=== PATIENT | female | born 1990 | race Caucasian/White ===

== ENCOUNTER 2023-01-05 14:54 | Inpatient (IN) | payer MEDICAID ==
[~2023-01-05] VITALS: Ht 154.9 cm; Wt 78.7 kg
[2023-01-05 16:03] LABS: BASOPHILS % (AUTO) 0.5 % (0.0-2.0); EOSINOPHILS % (AUTO) 0.5 % (1.0-6.0); HEMATOCRIT 37.7 % (36-46); MEAN CORPUSCULAR HGB CONC 31.8 G/dL (31.0-37.0); MEAN CORPUSCULAR VOLUME 79 fL (80-100); MONOCYTES # (AUTO) 0.5 K/uL (0.1-1.0); MONOCYTES % (AUTO) 5.4 % (2.0-9.0); NEUTROPHILS # (AUTO) 6.9 K/uL (1.8-7.7); NEUTROPHILS % (AUTO) 72.6 % (40.0-70.0); PLATELET COUNT (AUTO) 328 K/uL (150-450); RED CELL DISTRIBUTION WIDTH 17.5 % (11.5-14.5)
[2023-01-05 16:12] LABS: ANION GAP 8 mmol/L (8-16); CARBON DIOXIDE 28 mmol/L (22-29); CHLORIDE 103 mmol/L (98-107); GLOMERULAR FILTR. RATE CALC > 60 mL/min (>60); GLUCOSE,RANDOM 95 mg/dL (70-110); POTASSIUM 3.6 mmol/L (3.5-5.1); SODIUM SERUM 139 mmol/L (136-145); UREA NITROGEN, BLOOD 13 mg/dL (7-18)
[2023-01-05 16:23] LABS: ALANINE AMINOTRANSFERASE 19 U/L (12-78); ALKALINE PHOSPHATASE 64 U/L (46-116); ASPARTATE AMINOTRANSFERASE 16 U/L (15-37); BILIRUBIN,TOTAL 0.3 mg/dL (0.1-1.0); HCG,QUANTITATIVE < 1 mIU/mL (0-6); TOTAL PROTEIN, SERUM 7.9 g/dL (6.4-8.2)
[2023-01-05] MEDS ORDERED: LAMO100 PO (16:46)
[2023-01-05] MEDS ORDERED: LORazepam 2 MG TABLET PO PRN (17:00)
[2023-01-05] MEDS ORDERED: HALOPERIDOL 5 MG TABLET PO PRN (17:00)
[2023-01-05] MEDS ORDERED: ZOLPIDEM TARTRATE 10 MG TABLET PO PRN (17:00)
[2023-01-05 18:29] LABS: COVID AG,FIA SOURCE NASOPHARYNGEAL
[2023-01-05 18:34] LABS: APPEARANCE,URINE HAZY (CLEAR); BILIRUBIN,URINE NEGATIVE (NEGATIVE); GLUCOSE, URINE (UA) NEGATIVE (NEGATIVE); KETONES,URINE NEGATIVE (NEGATIVE); LEUKOCYTE ESTERASE ,URINE NEGATIVE (NEGATIVE); NITRATE,URINE NEGATIVE (NEGATIVE); OCCULT BLOOD,URINE NEGATIVE (NEGATIVE); PROTEIN,URINE TRACE mg/dL (NEGATIVE); SPECIFIC GRAVITIY, URINE 1.021 (1.003-1.030); UROBILINOGEN,URINE <=1.0 mg/dL (<=1.0)
[2023-01-05] MEDS ORDERED: TRAZ-257 PO (18:34)
[2023-01-05] MEDS ORDERED: HYDR-4527 PO (18:34)
[2023-01-05] MEDS ORDERED: FLUO20CA36 PO (18:34)
[2023-01-05] MEDS ORDERED: NALT50TA6 PO (18:34)
[2023-01-05 18:41] LABS: AMPHET/METH SCREEN,URINE NEGATIVE (NEGATIVE); BARBITURATE SCREEN, URINE NEGATIVE (NEGATIVE); BENZODIAZEPINES SCREEN,URINE NEGATIVE (NEGATIVE); CANNABINOID SCREEN,URINE NEGATIVE (NEGATIVE); COCAINE SCREEN,URINE NEGATIVE (NEGATIVE); METHADONE SCREEN, URINE NEGATIVE (NEGATIVE); OPIATE SCREEN,URINE NEGATIVE (NEGATIVE); PHENCYCLIDINE SCREEN,URINE NEGATIVE (NEGATIVE)
[2023-01-05 22:34] VITALS: BP 111/67
[2023-01-06] MEDS ORDERED: LamoTRIgine 100 MG TABLET PO SCH (09:00)
[2023-01-06 09:02] VITALS: BP 104/55
[2023-01-06] MEDS: FLUoxetine HCL 20 MG CAPSULE PO SCH (09:03)
[2023-01-06 16:00] VITALS: BP 130/77
[2023-01-06] MEDS: LamoTRIgine 100 MG TABLET PO SCH (16:16)
[2023-01-06] MEDS: TraZODone HCL 100 MG TABLET PO SCH (21:35)
[2023-01-06] MEDS ORDERED: ACETAMINOPHEN 325 MG TABLET PO PRN (21:45)
[2023-01-06] MEDS ORDERED: MAGNESIUM HYDROXIDE SUSPENSION 30 ML UDCUP PO PRN (21:45)
[2023-01-06] MEDS ORDERED: ALBUTEROL SULFATE HFA 90 MCG/PUFF 8 GM INHALER IH PRN (21:45)
[2023-01-06] MEDS ORDERED: IBUPROFEN 600 MG TABLET PO PRN (21:45)
[2023-01-06] MEDS ORDERED: CloNIDine HCL 0.1 MG TABLET PO PRN (21:45)
[2023-01-06] MEDS ORDERED: BENZOCAINE/MENTHOL LOZENGE PO PRN (21:45)
[2023-01-06] MEDS ORDERED: ONDANSETRON HCL 4 MG TABLET PO PRN (21:45)
[2023-01-06] MEDS ORDERED: LOPERAMIDE HCL 2 MG CAPSULE PO PRN (21:45)
[2023-01-06] MEDS ORDERED: BACITRACIN 28 GM OINTMENT TP PRN (21:45)
[2023-01-06] MEDS ORDERED: MAG HYDROX/AL HYDROX/SIMETH ES 30 ML SUSPENSION UDCUP PO PRN (21:45)
[2023-01-06] MEDS ORDERED: OMEPRAZOLE 20 MG CAPSULE PO PRN (21:45)
[2023-01-06] MEDS ORDERED: PETROLATUM,WHITE 28 GM JELLY TP PRN (21:45)
[2023-01-06] MEDS ORDERED: DOCUSATE SODIUM 100 MG CAPSULE PO PRN (21:45)
[2023-01-07] MEDS: LamoTRIgine 100 MG TABLET PO SCH ×2 (08:32→15:53)
[2023-01-07] MEDS: FLUoxetine HCL 20 MG CAPSULE PO SCH (08:33)
[2023-01-07 08:40] VITALS: BP 95/54
[2023-01-07 16:12] VITALS: BP 120/79
[2023-01-07] MEDS: TraZODone HCL 100 MG TABLET PO SCH (20:39)
[2023-01-08] MEDS: FLUoxetine HCL 20 MG CAPSULE PO SCH (08:44)
[2023-01-08] MEDS: LamoTRIgine 100 MG TABLET PO SCH ×2 (08:44→16:13)
[2023-01-08 10:23] VITALS: BP 108/70
[2023-01-08] MEDS ORDERED: LAMO100 PO (15:48)
[2023-01-08] MEDS ORDERED: FLUO20CA36 PO (15:48)
[2023-01-08 17:16] VITALS: BP 137/77
== END 2023-01-08 17:30 | disposition home or self-care (01) | DRG 753 ==
LOC: EMS 14:58 → 3EI 20:01
PROVIDERS: ADMIT Psychiatry & Neurology Psychiatry; ATTEND Psychiatry & Neurology Psychiatry
DX: F31.9 Bipolar disorder, unspecified (principal); R45.851 Suicidal ideations; Z20.822 Contact with and (suspected) exposure to COVID-19; F17.210 Nicotine dependence, cigarettes, uncomplicated; E66.01 Morbid (severe) obesity due to excess calories; F41.9 Anxiety disorder, unspecified; G47.00 Insomnia, unspecified; I10 Essential (primary) hypertension; K21.9 Gastro-esophageal reflux disease without esophagitis; K59.00 Constipation, unspecified; Z68.32 Body mass index [BMI] 32.0-32.9, adult; Z71.6 Tobacco abuse counseling
CPT/HCPCS: 80053; 80307; 81003; 84702; 85025; 87081; 99285; G0480